=== PATIENT | male | born 1970 | race Caucasian/White ===

== ENCOUNTER 2017-11-26 11:20 | Day surgery (SDC) | payer OTHER, SELFPAY ==
[2017-11-21 10:21] VITALS: BMI 33.5
[2017-11-26] VITALS (17 sets, daily range): BP systolic 128–171; BP diastolic 76–107; PULSE 63–78; RESP 10–20; TEMP 36.2–36.9; O2SAT 94–100; BMI 33.5
--- NOTE | 2017-11-26 | DI.RAD.S_ITS ---
PROCEDURE: XR CERVICAL SPINE 2V OR 3V INDICATIONS: C5-C6, C6-C7 DISCETOMY AND DISC REPLACEMENT TECHNIQUE: 2 intraoperative fluoroscopic view(s) of the cervical spine were acquired. COMPARISON: None. FINDINGS: Bones: Patient is status post intervertebral spacer placement at 2 levels of lower cervical spine, possibly at C5-6 and C6-7 levels. Alignment of cervical spine is anatomic. Soft tissues: No prevertebral soft tissue swelling. IMPRESSION: Intervertebral spacer placement in lower cervical spine as above. Dictated by: Aaron Murphy M.D. on 11/26/2017 at 18:13 Approved by: Aaron Murphy M.D. on 11/26/2017 at 18:15
--- NOTE | 2017-11-26 15:34 | PM.PREOP ---
Pre-operative Note Interval Note Pre-op Check: Yes History & Physical Reviewed by Physician and Yes Exam Performed Changes: No
[2017-11-26] MEDS: CEFAZOLIN 2 GM/100 ML FROZ.PIGGY IV ×2 (15:54→23:45)
--- NOTE | 2017-11-26 15:55 | PM.OP.1 ---
Operative Date/Time/Diagnoses Date of procedure: 11/26/17 Time of procedure: 17:36 Pre-op diagnosis: Cervical disc herniation Post-op diagnosis: same Procedure & Clinicians Procedure: C5-6 anterior cervical diskectomy and artificial disc replacement C6-7 anterior cervical diskectomy and artificial disc replacement Use of microscope Same procedure as scheduled: Yes Indications: [age] year old male with intractable pain from cervical disc herniation. They had failed conservative management and requested operative intervention. Risks and benefits of surgery were discussed and appropriate consents were obtained. Surgeon: Gurmeet Conrad Consulting Networking Engineer: Louisa Alexander Anesthesia Type: General Operative Notes Findings: none Closure Type: primary Specimen(s): none sent Implants & Drains: Shiva LDR Mobi-C Estimated Blood Loss (mL): 5 Blood products transfused: none Procedure in detail: Patient was brought to the operating room and intubated on the table. A time-out was performed. Preoperative antibiotics were given. The neck was prepped and draped in the standard sterile fashion. Using a skin fold, we made a 3 cm oblique incision on the left side. We used Bovie to go through the platysma and then did a standard anterolateral blunt dissection down to the precervical fascia. Fascia was nicked and elevated up. A marker was placed and x-ray was taken for localization. We then subperiosteally elevated up the longus colli muscles. Self-retaining retractors were placed. North Hero pins were placed under x-ray guidance to be parallel to the endplates. We then brought in the microscope. A scalpel used to perform an annulotomy. We then used a combination of pituitaries and curettes and Kerrison to perform a complete anterior diskectomy at C6-7. We took down the PLL and used Kerrison to remove any posterior disc material and osteophytes. At the end we could from the nerve hook cephalad caudally and out the foramen and everything was opened. We distracted open with the parallel account collector. We then used the horseshoes for sizing. We then used the trials. We then inserted a 15 x 17 x 6 mm Mobi-C artificial disc replacement under fluoroscopic guidance for positioning. The traction was released and x-ray was checked again. The self-retaining retractors and North Hero pins were removed and x-rays taken. We then went up to C5-6. We again performed a complete diskectomy including removal of the PLL and posterior osteophytes. We trialed and then placed our next 15 x 15 x 6mm Mobi-C artificial disc replacement. Final x-rays were taken. The wound was irrigated. There was no bleeding. The carotid was beating nicely. The platysma was closed. The superficial was closed. The skin was closed. A sterile dressing was placed. They were then extubated and brought to recovery room with no complications. Complications: none Condition: stable Disposition: PACU Plan for aftercare: Overnight admission. Up with physical therapy
--- NOTE | 2017-11-26 16:27 | SUR.OPER ---
Supine, head on gel donut. Arms padded with gel pads, tucked at sides, towel roll under shoulders. Safety belt at thigh. Legs uncrossed.Pillow under knees and gel pad under heels
[2017-11-26] MEDS: THROMBIN (BOVINE) 5,000 UNIT VIAL 5000 UNIT TOP (16:39)
[2017-11-26] MEDS: LACTATED RINGERS 1,000 ML 42 ML IV (16:40)
--- NOTE | 2017-11-26 16:43 | SUR.OPER ---
Gentamycin 80 mg in 1000 ml saline irrigation
[2017-11-26] MEDS: fentaNYL 100 MCG/2 ML INJ 50 MCG IV ×2 (17:56→18:02)
[2017-11-26] MEDS: HYDROCODONE/ACET 5/325 TABLET 1 TAB PO (18:12)
[2017-11-26] MEDS: HYDROMORPHONE 2 MG INJ 0.5 MG IV (18:15)
--- NOTE | 2017-11-26 18:27 | SUR.PREOP ---
BG 89
[2017-11-26] MEDS: LACTATED RINGERS 1,000 ML 125 ML IV (19:15)
--- NOTE | 2017-11-26 19:20 | PC.NURSE ---
Pt to acute care from PACU. Alert/Oriented. Pain 06/22. Dressing to anterior neck c/d/i. Soft collar in place. Pt reports cms in right arm/hand improved after surgery. IV infusing without complications. SCDs on. Oriented to room and call light.
[2017-11-26] MEDS: CELECOXIB 200 MG CAPSULE 400 MG PO (19:37)
[2017-11-26] MEDS: COLCHICINE 0.6 MG TABLET PO (20:48)
[2017-11-26] MEDS: ALLOPURINOL 300 MG TABLET PO (20:48)
[2017-11-26] MEDS: HYDROCODONE/ACET 5/325 TABLET 2 TAB PO (22:58)
[2017-11-27] MEDS: HYDROCODONE/ACET 5/325 TABLET 2 TAB PO ×2 (03:01→08:31)
[2017-11-27 06:14] VITALS: BP 145/76; PULSE 63; RESP 16; TEMP 36.8; O2SAT 97
--- NOTE | 2017-11-27 07:54 | PM.PNPO.1 ---
Subjective Date Patient Seen: 11/27/17 Time Patient Seen: 07:54 Interval history: He still has pain across the back of the neck but it is manageable. No more arm symptoms. Very pleased Exam Vital Signs (past 8 hours): - 11/26/17 23:55 11/27/17 06:14 Temperature 97.8 F 98.2 F Pulse Rate 72 63 Respiratory Rate 16 16 Blood Pressure 153/82 H 145/76 H Pulse Oximetry 96 97 Oxygen Delivery Method Room Air Const Orientation: alert and oriented x3 Back/Spine/Pelvis Other: Dressing with minimal drainage. 5/5 motor both upper extremities. Assessment & Plan Post-op Postoperative Procedures Operation Date: 11/26/17 14:15 Actual Procedures Side Surgeon p C5-6, C6-7 Anterior Discetomy and Artificial Disc Replacement Gurmeet Conrad MD he is doing great. We will discharge him home after physical therapy. Time Spent With Patient less than 15 minutes Quality VTE Deep Vein Thrombosis/Pulmonary Embolism Present on Admission: No
[2017-11-27] MEDS: SODIUM CHLORIDE 0.9% FLUSH 10 ML IV (08:36)
[2017-11-27] MEDS: CELECOXIB 200 MG CAPSULE PO (08:36)
--- NOTE | 2017-11-27 08:58 | PT.IPTN ---
Current Diagnoses Spinal stenosis, cervical region (11/26/17) Other cervical disc displacement, unspecified cervical region (11/26/17) Surgery Performed Operation Date: 11/26/17 14:15 Actual Procedures p C5-6, C6-7 Anterior Discetomy and Artificial Disc Replacement - Gurmeet Conrad MD Physical Therapy Treatment Note M3 PT-IP Subjective Start: 11/27/17 09:16 Freq: NEEDED Status: Active Protocol: Document 11/27/17 09:17 MDD (Rec: 11/27/17 09:19 MDD [id number]) Subjective Physical Therapy Visit Type Type Administrative Note Visit Start Time 08:45 Visit Stop Time 08:57 Total Visit Minutes 12 Notes Pt found standing in room after having just finished dressing. Pt demonstrates no balance deficits in standing or with short distance gait in room. Pt able to perform romberg eyes open, eyes closed, tandem stance and single leg stance B for up to 30 seconds each. Pt does not report having any concerns about going home and does not feel that he needs to practice stairs. D/C from skilled therapy services at this time. Pt deemed safe to return home when medically cleared. Therapy Pain Assessment Pain When Pain Assessed At Rest Pain Present Pain Present Pain Reported Location neck and upper backl Intensity 3 Scale Used Numeric (1 - 10)
--- NOTE | 2017-11-27 09:52 | OT.IP.TRT ---
Current Diagnoses Spinal stenosis, cervical region (11/26/17) Other cervical disc displacement, unspecified cervical region (11/26/17) Surgery Performed Operation Date: 11/26/17 14:15 Actual Procedures p C5-6, C6-7 Anterior Discetomy and Artificial Disc Replacement - Gurmeet Conrad MD Occupational Therapy Treatment Note M3 OT- IP Subjective and Pain Start: 11/27/17 09:51 Freq: Status: Active Protocol: Document 11/27/17 09:51 [facility] (Rec: 11/27/17 09:52 [facility] [id number]) OT- Subjective Occupational Therapy Visit Type Type Administrative Note Notes Pt doing well per PT and able to do all need for himself at this time and therefore no OT eval needed at this time. Discharge OT eval order.
--- NOTE | 2017-11-27 11:14 | PC.NURSE ---
Pt has received discharge orders to leave the care of the hospital and continue rehabilitation at home. He has been provided discharge paperwork and education. Pt has been escorted out of the hospital at approx. 1100 via wheelchair by ez Mata.
--- NOTE | 2017-11-27 11:32 | CM.DANOTE ---
DCP Chart Review and discharge home Patient is a 47 year old male who was admitted on 11/27/17 for C5-6. Pt has [employer] for insurance and his PCP is not listed. EMR was reviewed. Per Ortho PA, pt medically stable to d/c home today with no identified barriers to discharge. Per PT/OT, pt safe for d/c home today and no needs. Plan: Patient to d/c home today via POV. No SW needs at this time, please refer if indicated. SARA Nam
== END 2017-11-27 11:00 ==
LOC: OR 11:25 → AC 19:06
PROVIDERS: Visit Provider Orthopaedic Surgery
PROC: (CPT 22856; principal; 2017-11-26 14:15)
DX: M48.02 Spinal stenosis, cervical region (principal); M50.20 Other cervical disc displacement, unspecified cervical region; I10 Essential (primary) hypertension
CPT/HCPCS: 22856; 22858; 72040; 76001; C1776; J0690; J1100; J1170; J2405; J2704; J3010

== ENCOUNTER → 2018-11-13 06:46 | Outpatient (CLI) | payer OTHER, SELFPAY ==
--- NOTE | 2018-11-13 | DI.ECHO.S_ITS ---
[facility]---------+ [facility] +---------+ : : [address] [place] : : : : [id number] : : : : Phone: [phone] Echocardiogram Report + + :Name: VICTORIA HOWARD Study Date: 11/13/2018 Height: 71 in : :[facility] Weight: 185 lb : : Gender: Male BSA: 2.0 m2 : :: 1970 Age: 48 yrs BP: 118/76 mmHg: :Reason For Study: ATHEROSCLEROTIC HEART DISEASE : :Ordering Physician: Salazar : :Becki Shahid Performed By: Tammy Mendoza : + + Interpretation Summary 1) Normal left ventricular thickness, size, and systolic function (EF 55-60%). 2) There is inferior wall hypokinesis. 3) Normal right ventricular size and function. 4) No significant valvular abnormalities. 5) Compared to the Echo done 09/24/2018, LVEF has improved from 45-50% to 55- 60% on this study. Procedure: A two-dimensional transthoracic echocardiogram with color flow and Doppler was performed. The study quality was technically adequate. Comparison is made with the echocardiogram of 09/24/2018. The patient was in normal sinus rhythm during the exam. Left Ventricle: The left ventricle is normal in size. Left ventricular wall thickness is normal. The ejection fraction is estimated to be 55-60%. There is inferior wall hypokinesis. Diastolic parameters suggest probable normal left ventricular diastolic function and normal filling pressures. Right Ventricle: The right ventricle is normal in size and function. Atria: The left atrium is mildly dilated. Right atrial size is normal. There is no Doppler evidence for an interatrial shunt. Mitral Valve: The mitral valve is normal in structure and function. There is trace mitral regurgitation. Aortic Valve: The aortic valve is normal in structure and function. No aortic regurgitation is present. Tricuspid Valve: The tricuspid valve is normal in structure and function. There is a trace or physiologic amount of tricuspid regurgitation. Pulmonary artery pressures cannot be estimated because of the lack of a measurable TR jet velocity. Pulmonic Valve: The pulmonic valve is not well seen, but is grossly normal. Great Vessels: The aortic root is normal size. The ascending aorta is normal in size. The aortic arch is at the upper limits of normal in size. The IVC is of normal diameter and collapses greater than 50% with a sniff. This suggests a low right atrial pressure of 3 mm Hg. Pericardium/ Pleura There is no pericardial effusion. MMode/2D Measurements & Calculations LVIDd: 5.0 cm LVOT diam: 2.3 cm LVIDs: 3.3 cm Ao root diam: 3.8 cm FS: 33.8 % Aortic Jxn: 2.7 cm EPSS: 1.4 cm asc Aorta Diam: 3.3 cm IVSd: 1.0 cm Ao Arch Diam (Prox Trans): 3.3 cm LVPWd: 1.2 cm LV mondragon. diameter/BSA (cm/m^2): 2.5 LV sys. diameter/BSA (cm/m^2): 1.6 LA A2 area: 22.4 cm2 RA long axis: 5.4 cm LA A4 area: 21.3 cm2 RA area: 17.2 cm2 LA length (vol): 5.6 cm RA vol: 47.0 ml LA vol: 72.2 ml RA : 23.1 ml/m2 LA vol index: 35.4 ml/m2 IVC diam: 1.8 cm RVD1 (basal): 3.5 cm RVD2 (mid): 2.9 cm TAPSE: 2.8 cm Doppler Measurements & Calculations Ao V2 max: 140.4 cm/sec LVOT Max Mil: 93.1 cm/sec Ao V2 mean: 94.2 cm/sec LV V1 max P.5 mmHg Ao max P.9 mmHg LV V1 VTI: 19.7 cm Ao mean P.2 mmHg BEVERLY(I,D): 2.9 cm2 Ao V2 VTI: 27.7 cm BEVERLY(V,D): 2.7 cm2 sev ratio: 0.71 BEVERLY indexed to BSA (cm^2/m^2): 1.4 MV E max mil: 71.5 cm/sec PA V2 max: 122.8 cm/sec MV A max mil: 74.2 cm/sec PA V2 mean: 82.1 cm/sec MV E/A: 0.96 PA mean P.1 mmHg Med Peak E' Mil: 7.9 cm/sec PA Accel Time: 0.07 sec E/E' med: 9.1 Lat Peak E' Mil: 12.1 cm/sec E/E' lat: 5.9 E/e' average: 7.5 MV dec time: 0.19 sec MV P1/2t: 57.2 msec MV P1/2t max mil: 71.6 cm/sec SV(LVOT): 79.8 ml MVA(P1/2t): 3.8 cm2 Reading Physician:02:37 PM
== END ==
PROVIDERS: Visit Provider Internal Medicine Cardiovascular Disease
DX: I25.10 Atherosclerotic heart disease of native coronary artery without angina pectoris (principal)
CPT/HCPCS: 93306